=== PATIENT | female | born 1995 | race African-American/Black ===

== ENCOUNTER 2020-11-26 02:00 | Emergency (ER) | payer OTHER ==
[~2020-11-26] VITALS: Ht 175.3 cm; Wt 129.3 kg
[2020-11-26] MEDS ORDERED: MUPIROCIN22 GM TOP (05:33)
[2020-11-26] MEDS ORDERED: KETO10TA2 PO (05:33)
[2020-11-26] MEDS ORDERED: CEPHALEXIN500 M1 PO (05:33)
== END 2020-11-26 06:07 ==
LOC: ER 02:00
DX: S50.811A Abrasion of right forearm, initial encounter (principal); W18.39XA Other fall on same level, initial encounter; Y92.89 Other specified places as the place of occurrence of the external cause